=== PATIENT | male | born 1970 | race Caucasian/White ===

== ENCOUNTER 2021-05-19 07:58 | Inpatient (IN) | payer OTHER ==
[~2021-05-19 07:58] MED LIST: AMLODIPINE BESYL5 MG PO; ASPIRIN EC81 MG PO; CLONIDINE HCL0.1 MG PO; GLYBURIDE 5MG TA5 MG PO; INSULIN LI100 UNIT/1 SC; LANTUS **100 UNITS/ SC; LISINOPRIL20 MG PO; POTASSIUM CHLO20 ME2 PO
[2021-05-20] MEDS ORDERED: PLAVIX75 MG PO (12:15)
[2021-05-20] MEDS ORDERED: CRESTOR40 MG PO (12:25)
== END 2021-05-20 18:05 | disposition other institution (70) | DRG 65 ==
LOC: FMS 07:58
PROVIDERS: ADMIT Internal Medicine
DX: I63.9 Cerebral infarction, unspecified (principal); G81.94 Hemiplegia, unspecified affecting left nondominant side; I69.351 Hemiplegia and hemiparesis following cerebral infarction affecting right dominant side; N18.4 Chronic kidney disease, stage 4 (severe); R29.712 NIHSS score 12; Z20.822 Contact with and (suspected) exposure to COVID-19; R47.81 Slurred speech; I65.23 Occlusion and stenosis of bilateral carotid arteries; I12.9 Hypertensive chronic kidney disease with stage 1 through stage 4 chronic kidney disease, or unspecified chronic kidney disease; E11.22 Type 2 diabetes mellitus with diabetic chronic kidney disease; R29.810 Facial weakness; I25.10 Atherosclerotic heart disease of native coronary artery without angina pectoris; Z86.010 Personal history of colon polyps; Z79.4 Long term (current) use of insulin; Z79.82 Long term (current) use of aspirin; Z79.899 Other long term (current) drug therapy
CPT/HCPCS: 36415; 70450; 70544; 70548; 70551; 71045; 71250; 74230; 80048; 80053; 81001; 83735; 84100; 84145; 84439; 84443; 84484; 85025; 85610; 85730; 86140; 87040; 92611; 93005; 97110; 97162; 97167; 97530; 97530-GP; 97535; A9579; J0360; J0456; J0696; J1650; J1815; J2405; J2543; J3480; J3490; J7030; J7050; U0002